=== PATIENT | male | born 2000 | race Caucasian/White ===

== ENCOUNTER 2018-06-10 12:39 | Emergency (ER) | payer SELFPAY ==
[~2018-06-10] VITALS: Ht 182.9 cm; Wt 84.4 kg
[2018-06-10 13:04] VITALS: BP 115/66
--- NOTE | 2018-06-10 13:19 | Emergency Room Report ---
History of Present Illness General Chief Complaint: Abdominal Pain Source: Patient Present Illness HPI Prior to examination with provider, patient reported to the nurse that he would like to go home and not be evaluated. I went to go speak with the patient and to encourage him to stay and be evaluated especially given his history. physical exam was not performed. Patient states that he is beginning to feel better and his pain as almost completely resolved. And he continues to want to leave without being fully evaluated. Pt. reports he has been drinking a lot of coffee lately and thinks it may be stomach acid. I discussed with this patient that he would need to sign an AMA form. Both the attending and I explained reasoning for meaningful evaluation as well as consequences that can occur from leaving AGAINST MEDICAL ADVICE. Allergies: Coded Allergies: No Known Allergies (Unverified , 06/10/18) Patient History Past Medical History: see triage record Nursing Documentation-[facility] Past Medical History: No History, Except For Hx Cardiac Problems: No - PANCREATITIS Physical Exam Vital Signs Date Time Temp Pulse Resp B/P (MAP) Pulse Ox O2 Delivery O2 Flow Rate FiO2 06/10/18 12:44 98.3 70 20 115/66 96 Room Air 98.2 Medical Decision Making PA Attestation Dr. Patel is my supervising physician whom pt. management has been discussed with. Diagnostic Impression: Primary Impression: Abdominal pain Qualified Codes: R10.13 - Epigastric pain ER Course Prior to examination with provider, patient reported to the nurse that he would like to go home and not be evaluated. I went to go speak with the patient and to encourage him to stay and be evaluated especially given his history. physical exam was not performed. Patient states that he is beginning to feel better and his pain as almost completely resolved. And he continues to want to leave without being fully evaluated. Pt. reports he has been drinking a lot of coffee lately and thinks it may be stomach acid. I discussed with this patient that he would need to sign an AMA form. Both the attending and I explained reasoning for meaningful evaluation as well as consequences that can occur from leaving AGAINST MEDICAL ADVICE. Last Vital Signs Date Time Temp Pulse Resp B/P (MAP) Pulse Ox O2 Delivery O2 Flow Rate FiO2 06/10/18 13:04 98.2 78 20 115/66 96 Room Air 98.2 Disposition: AGAINST MEDICAL ADVICE Condition: Unknown Scripts Bismuth Subsalicylate (PEPTO-BISMOL) 262 Mg Tablet 262 MG PO TID, #15 TAB Prov: Melani Stewart 06/10/18 Ranitidine Hcl* (ZANTAC*) 150 Mg Tablet 150 MG ORAL TWICE A DAY, #20 TAB Prov: Melani Stewart 06/10/18 Referrals: NOT CHOSEN [facility]/MD,REFERRING (PCP) Patient Instructions: Abdominal Pain, Adult Additional Instructions: Follow up with your PCP within 3 days. - At this time the patient is requesting to leave AGAINST MEDICAL ADVICE. I believe that this patient has the capacity to make decisions on His own. I discussed with the patient the risks of leaving AMA. Some of these risks include delay in diagnosis and treatment, as well as worsening of symptoms, organ damage, and permanent disability or even . After discussing these risks with the patient. He continues to express His want and intentions to leave AGAINST MEDICAL ADVICE. I encouraged the patient to return at any time, and that she will be welcome here in the emergency department to continue medical management. Pt. is also given a list of free/reduced cost health clinics. Melani Stewart Jun 10, 2018 13:19
[2018-06-10] MEDS ORDERED: PEPTO-BISMOL262 M1 PO (13:21)
[2018-06-10] MEDS ORDERED: RANITIDINE HCL150 MG ORAL (13:21)
[2018-06-10 13:28] VITALS: BP 115/66
== END 2018-06-10 13:28 | disposition left against medical advice (07) ==
LOC: EMR 13:11
DX: R10.9 Unspecified abdominal pain (principal); Z87.19 Personal history of other diseases of the digestive system
CPT/HCPCS: 96374; 96375; 99284